=== PATIENT | female | born 1995 | race African-American/Black ===

== ENCOUNTER 2021-06-11 01:25 | Emergency (ER) | payer OTHER ==
[~2021-06-11] VITALS: Ht 160 cm; Wt 56.7 kg
[2021-06-11 01:25] VITALS: BP 110/69
--- NOTE | 2021-06-11 01:25 | NUR ---
PT [facility]. TAKEN TO BED 5
--- NOTE | 2021-06-11 01:40 | NUR ---
Dr. Adorno examining patient.
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
--- NOTE | 2021-06-11 01:52 | NUR ---
ERMD AT BEDSIDE ASSESSING PT.
--- NOTE | 2021-06-11 02:09 | NUR ---
PER CLIFF PT OK FOR DISCHARGE INTO THE CUSTODY OF GRANDMOTHER.
--- NOTE | 2021-06-11 02:24 | NUR ---
PT GRANDMOTHER AT BEDSIDE FOR DISCHARGE.
[2021-06-11 02:25] VITALS: BP 110/69
--- NOTE | 2021-06-11 02:25 | NUR ---
Patient discharged with v/s stable. Written and verbal after care instructions given and explained. Patient verbalized understanding. Ambulatory with steady gait. All questions addressed prior to discharge. Advised to follow up with PMD. PT DISCHARGED TO CUSTODY OF GRANDMOTHER. TOLD GRANDMOTHER TO STAY W PT AT ALL TIMES UPON DISCHARGE INCLUDING AT HOME. GRANDMOTHER VERBALIZES UNDERSTANDING.
== END 2021-06-11 02:25 | disposition home or self-care (01) ==
LOC: MED 01:25
DX: F41.9 Anxiety disorder, unspecified (principal); F31.9 Bipolar disorder, unspecified
CPT/HCPCS: 99283